=== PATIENT | female | born 1990 | race Caucasian/White ===

== ENCOUNTER 2018-08-14 11:13 | Emergency (ER) | payer OTHER, SELFPAY ==
[2018-08-14 11:25] VITALS: BP 122/84; PULSE 99; RESP 16; TEMP 36.8; O2SAT 100; BMI 34.9
[2018-08-14 12:07] LABS: Appearance Urine UA CLEAR; Bilirubin Urine UA NEGATIVE (NEGATIVE); Color Urine UA YELLOW; Glucose Urine UA NEGATIVE (Negative); Ketones Urine UA NEGATIVE (NEGATIVE); Leukocyte Esterase Urine UA NEGATIVE (NEGATIVE); Nitrite Urine UA NEGATIVE (Negative); Occult Blood Urine UA NEGATIVE (Negative); Protein Urine UA NEGATIVE (Negative); Specific Gravity Urine UA 1.025 (1.000-1.035); Urobilinogen Urine UA 0.2 E.U./dL (0.2)
[2018-08-14 12:15] LABS: Pregnancy Test Urine Negative (Negative)
--- NOTE | 2018-08-14 14:23 | ED_ITS ---
HPI - Back Pain/Injury General Chief Complaint: Back Pain/Injury Stated Complaint: Lower back injury/unknown how injured Time Seen by Provider: 08/14/18 14:13 Source: patient Mode of arrival: ambulatory Limitations: no limitations History of Present Illness HPI Narrative: A 28-year-old female comes to the emergency with complaint of back pain. Patient states she has had similar back pain in the past but always associated with his accelerating factors. Patient works at [employer] had states often she is lifting and moving heavy boxes. Patient states she started having pain yesterday. She was at work. She states sort of came on gradually Yeny but is in the same area of pain. The patient states sore to the left low back. It does not radiate down the leg or to the buttock. She has not had any loss of bowel or bladder control, she does not have any weakness or numbness down her extremities. No saddle anesthesia. No fevers. Patient denies any history of IV drug abuse. Patient denies any other past medical history. She tried ibuprofen yesterday with minimal improvement. She states typically takes her a couple days until she is improved enough that her symptoms have resolved. She has never been evaluated or had any imaging for it. She denies any dysuria, urgency or frequency. She denies any nausea or vomiting other than when the pain is very severe she will be nauseated. No diarrhea or constipation, no abdominal pain. No chest pain or shortness of breath. Related Data Previous Rx's Medication Instructions Recorded diazepam [Valium] 2 mg PO TID-QID PRN #5 tab 08/14/18 meloxicam [Mobic] 7.5 mg PO BID #14 tab 08/14/18 Allergies Allergy/AdvReac Type Severity Reaction Status Date / Time No Known Drug Allergies Allergy Verified 08/14/18 11:25 Review of Systems Review of Systems ROS Unobtainable: All systems reviewed & are unremarkable except as noted in HPI and below Constitutional Denies chills, Denies fever(s) and Denies weakness Gastrointestinal Gastrointestinal: Denies abdominal pain, Denies change in bowel habits, Denies fecal incontinence, Denies diarrhea, Denies nausea and Denies vomiting Genitourinary Denies abnormal vaginal bleeding, Denies hematuria, Denies urinary frequency, Denies dysuria, Denies flank pain, Denies urinary incontinence, Denies urinary urgency and Denies vaginal discharge Musculoskeletal Reports as per HPI, Reports back pain, Reports limited range of motion (Low back), Denies muscle weakness, Denies numbness, Denies radiating pain into limb and Denies tingling Integumentary/Breasts Denies erythema and Denies rash Neurologic Denies focal weakness, Denies numbness, Denies radicular pain, Denies sensory deficit, Denies tingling and Denies weakness [facility] Social History Smoking Status: Never smoker Social History Smoking Status: Never smoker substance use type: does not use Exam Narrative Exam Narrative: GENERAL: Alert and oriented x three, well-nourished, well- appearing female in mild distress. HEENT: Head normocephalic, atraumatic, EOMI, pupils reactive, face symmetric, moist mucous membranes NECK: Supple, full range of motion CARDIOVASCULAR: Regular rate and rhythm without murmurs, rubs or gallops. RESPIRATORY: Breath sounds equal bilaterally, no wheezes rales or rhonchi. ABDOMEN: Soft, nontender. Normoactive bowel sounds all 4 quadrants. No guarding or rebound, rigidity, no mass : No CVA tenderness BACK: No cervical, thoracic or lumbar vertebral point tenderness. Patient has normal range of motion. Patient's gait is normal. Rectal exam is deferred, no saddle anesthesia. Muscle strength is 5/5 in lower extremities, DTRs are 2/4 and lower extremities. Dorsalis pedis and tibialis pulses are 2+ and lower extremities. Sensation is intact in the lower extremities. EXTREMITIES: Normal range of motion, no clubbing or edema. Neurovascularly intact NEUROLOGICAL: Cranial nerves II through XII grossly intact. Moving all extremities SKIN: Warm, dry, no petechiae, no rashes or lesions. Initial Vital Signs Initial Vital Signs: Vital Signs Temperature 98.2 F 08/14/18 11:25 Pulse Rate 99 H 08/14/18 11:25 Respiratory Rate 16 08/14/18 11:25 Blood Pressure 122/84 08/14/18 11:25 Pulse Oximetry 100 08/14/18 11:25 Course Orders Ordered: ED Orders 08/14/18 12:00 Test Urine Stat Urinalysis Sreen (Dip Only) Stat Discontinued Medications Ketorolac Tromethamine (Toradol) 60 mg IM NOW ONE Stop: 08/14/18 14:23 Last Admin: 08/14/18 14:28 Dose: 60 mg Vital Signs - 8 hr 08/14/18 14:47 Pulse Rate 85 Respiratory Rate 16 Blood Pressure 122/84 Pulse Oximetry 97 MDM - Back Pain/Injury Lab Data Attestation: I reviewed the patient's lab results. Lab Results 08/14/18 08/14/18 Range/Units 12:00 12:00 Urine Color Yellow Urine Appearance Clear Urine pH 5.0 (4.5-8.0) Ur Specific [place] 1.025 (1.000-1.035) Urine Protein Negative (Negative) Urine Glucose (UA) Negative (Negative) g/dL Urine Ketones Negative (NEGATIVE) Urine Occult Blood Negative (Negative) Urine Nitrate Negative (Negative) Urine Bilirubin Negative (NEGATIVE) Urine Urobilinogen 0.2 (0.2) E.U./dL Ur Leukocyte Esterase Negative (NEGATIVE) Urine Test Negative (Negative) MDM Narrative Medical decision making narrative: Patient has had similar low back pain in the past. She did not have an acute cause today but she frequently lift and has repetitive heavy lifting had the post [employer]. Suspect this is exacerbation of her typical chronic back pain. Plan for NSAID medication as well as some muscle relaxant. No red flag symptoms at this time that any suspicious for requiring need for imaging. Discussed with patient plan for follow up or return here if worsening symptoms and discussed red flag symptoms. Discharge Plan Departure Patient Disposition: Home Clinical Impression: Left low back pain Qualifiers: Chronicity: acute Sciatica presence: without sciatica Qualified Code(s): M54.5 - Low back pain Discharge Date/Time: 08/14/18 14:47 Interventions: ED Discharge Assessment Last Done: 08/14/18 14:47 Instructions: DI for Low Back Pain Activity Restrictions/Additional Instructions: Follow up in the next 7-10 days for recheck if your symptoms are not resolving. Take Mobic every 12 hr as needed for symptoms, you may take Tylenol with this up to a 1000 mg every 8 hr as needed. Take Valium which is a muscle relaxant every 6-8 hours as needed for symptoms. This medication can make you sleepy do not drive, perform hazards activities or make any major decisions while taking it. Return to the emergency department for fevers greater than 100.4, new weakness, numbness, loss of bowel or bladder control, rapidly worsening pain or other new or concerning symptoms. Prescriptions: New meloxicam [Mobic] 7.5 mg tablet 7.5 mg PO BID Qty: 14 RF: 0 diazepam [Valium] 2 mg tablet 2 mg PO TID-QID PRN (Reason: muscle spasm) Qty: 5 RF: 0 Stand Alone Forms: Work Release Note
[2018-08-14] MEDS: KETOROLAC 60 MG/2 ML VIAL IM (14:28)
[2018-08-14 14:47] VITALS: BP 122/84; PULSE 85; RESP 16; O2SAT 97
== END 2018-08-14 14:47 | disposition home or self-care (01) ==
PROVIDERS: Emergency Provider Emergency Medicine
DX: M54.5 Low back pain (principal)
CPT/HCPCS: 81003; 81025; 99282; 99283; J1885